=== PATIENT | male | born 1990 | race Two or more races ===

== ENCOUNTER 2022-05-31 16:32 | Emergency (ER) | payer OTHER ==
[~2022-05-31] VITALS: Ht 167.6 cm; Wt 79.4 kg
== END 2022-05-31 19:35 | disposition home or self-care (01) ==
LOC: ER 16:32
DX: S96.911A Strain of unspecified muscle and tendon at ankle and foot level, right foot, initial encounter (principal); X58.XXXA Exposure to other specified factors, initial encounter; Y93.89 Activity, other specified; Y92.89 Other specified places as the place of occurrence of the external cause; Y99.9 Unspecified external cause status

== ENCOUNTER → 2022-08-21 15:16 | Outpatient (CLI) | payer OTHER | END | disposition home or self-care (01) | LOC: RAD 15:16 | PROVIDERS: ATTEND Orthopaedic Surgery | DX: M25.571 Pain in right ankle and joints of right foot (principal) ==